=== PATIENT | female | born 1995 | race African-American/Black ===

== ENCOUNTER 2022-12-08 15:00 | Emergency (ER) | payer OTHER, SELFPAY ==
--- NOTE | ~2022-12-08 | US_ITS ---
EXAMINATION: US OB <=14 wk fetus w TV INDICATION: abodminal pain/early TECHNIQUE: Sonography of the pelvis was performed by transabdominal and transvaginal techniques. COMPARISON: None. RESULT: Uterus: Orientation: Anteverted. 12.2 x 7.8 x 8.8 cm. Myometrium: homogeneous echogenicity. Gestation: - Intrauterine gestational sac: Not seen. - Yolk sac: Present. - Embryo: Single present. - [place] rump length: 4.1 cm, corresponding gestational age 11 weeks, 0 days. -Gestational heart rate: present bpm. -Subgestational hematoma: Absent . Right ovary: 3.5 x 2.2 x 2.1 cm. Normal sonographic appearance with physiologic follicles. . 1.7 c m cyst versus dominant follicle. Left ovary: 3.4 x 2.0 x 2.2 cm. Normal sonographic appearance with physiologic follicles. . . Pelvis free fluid: None. IMPRESSION: Single, live intrauterine gestation. Estimated Gestational Age: 11 weeks, 0 days by crown rump length. SHADIA by ultrasound 06/29/2023. Reviewed, dictated and finalized at location K. IMPRESSION: Single, live intrauterine gestation. Estimated Gestational Age: 11 weeks, 0 days by crown rump length. SHADIA by ultra sound 06/29/2023.
[2022-12-08 15:12] VITALS: BP 123/72; PULSE 93; RESP 16; TEMP 37.2; O2SAT 100
--- NOTE | 2022-12-08 16:49 | PC.NURSE ---
Patient observed leaving the ER with SO and all belongings. Patient did not communicate to this RN as she left. Ambulatory with steady gait.
[2022-12-08 18:51] LABS: Basophils Absolute Auto 0.1 K/mm3 (0.0-0.1); Basophils Percent Auto 0.6 % (0.2-1.2); Eosinophils Absolute Auto 0.2 K/mm3 (0-0.3); Eosinophils Percent Auto 2.6 % (0-4.4); Hematocrit 39.7 % (37.0-47.0); Hemoglobin 13.3 g/dL (12.0-15.0); Immature Granulocyte Absolute 0.03 K/mm3 (0.00-0.031); Immature Granulocyte Percent A 0.4 % (0-0.5); Lymphocytes Absolute Auto 1.97 K/mm3 (0.9-3.2); Lymphocytes Percent Auto 24.4 % (18.3-44.2); Mean Corpuscular HGB Conc 33.5 g/dl (32-36); Mean Corpuscular Hemoglobin 31.7 pg (26-34); Mean Corpuscular Volume 94.5 fl (80-100); Mean Platelet Volume 10.2 fl (7.4-10.4); Monocytes Absolute Auto 0.5 K/mm3 (0.1-0.6); Neutrophils Absolute Auto 5.3 K/mm3 (1.3-6.7); Platelet Count Result 325 k/mm3 (150-375); Red Cell Distribution Width 12.8 % (11.5-14.5); White Blood Count 8.1 K/mm3 (4.5-10.0)
[2022-12-08 19:05] LABS: Alanine Aminotransferase 16 U/L (6-35); Albumin Level 4.4 g/dL (3.5-5.1); Alkaline Phosphatase 40 U/L (38-126); Anion Gap 7 mmol/L (8-16); Appearance Urine Cloudy (Clear); Aspartate Amino Transferase 17 U/L (14-36); Bacteria Urine 2+ /hpf; Bilirubin Urine Negative (Negative); Bilirubin,Total 0.3 mg/dL (0.2-1.3); Blood Urea Nitrogen 9 mg/dL (7-17); Blood Urine Negative (Negative); Carbon Dioxide 25 mmol/L (22-30); Chloride 104 mmol/L (98-107); Color Urine Dark Yellow (Yellow); Estimated CRCL calculation 135 ml/min; Estimated Glomerular Filt Rate > 60; Glucose 98 mg/dL (65-110); Glucose Urine UA Negative (Negative); Ketones Urine Negative (Negative); Leukocyte Esterase Ur 1+ LEU/UL (Negative); Lipase 91 U/L (23-300); Need Manual Microscopic Reviewed; Nitrate Urine Negative (Negative); Non Pathogenic Casts 0-2; Potassium 3.6 mmol/L (3.4-5.0); Protein Urine Negative (Negative); Sodium 136 mmol/L (137-145); Specific Grav Ur 1.031 (1.001-1.035); Squamous Epithelial Cell Urine Many /hpf (Few); WBC Urine 0-5 /hpf
[2022-12-08 19:07] LABS: Add Urine Microscopic? YES
--- NOTE | 2022-12-08 19:48 | PC.NURSE ---
Lab called at this time and Spoke with Baldo, HCG will be added on to current blood in lab.
[2022-12-08 19:59] VITALS: BP 119/63; PULSE 86; RESP 18; O2SAT 100
[2022-12-08 22:39] VITALS: BP 126/65; PULSE 72; RESP 14; O2SAT 100
--- NOTE | 2022-12-08 22:45 | ED.ABDPAIN ---
HPI - Abdominal Pain General Chief Complaint: Abdominal Pain <OSVALDO Serna Last Filed: 12/09/22 01:46> Stated Complaint: abdominal pain, hx of cyst on ovary <OSVALDO Serna Last Filed: 12/09/22 01:46> Time Seen by Provider: 12/08/22 22:31 <OSVALDO Serna Last Filed: 12/09/22 01:46> History of Present Illness HPI narrative: Patient is a 27-year-old female who is currently 11 weeks here for evaluation of right-sided pelvic pain for the past several weeks, worsened today. She has an ovarian cyst that was seen on outpatient imaging but she was referred to the ED for ultrasound to rule out torsion. Patient reports nausea but no vomiting, reports chronic nausea in her pregnancies. She reports urinary frequency but no dysuria or hematuria. She has had no fevers, chills, back pain, vaginal bleeding. <OSVALDO Serna Last Filed: 12/09/22 01:46> Related Data Allergies/Adverse Reactions: Allergies Allergy/AdvReac Type Severity Reaction Status Date / Time No Known Allergies Allergy Verified 12/08/22 15:00 <OSVALDO Serna Last Filed: 12/09/22 01:46> Review of Systems Review of Systems: Gen: Denies fevers or chills Eyes: Denies eye pain or visual change ENT: Denies congestion Respiratory: Denies shortness of breath or cough CV: Denies chest pain or palpitations GI: Reports nausea and vomiting. : Reports right-sided pelvic pain. Musculoskeletal: Denies back pain or muscle pain Neuro: Denies numbness, tingling, weakness or focal weakness Skin: Denies rash Except as documented, all other systems reviewed and negative <OSVALDO Serna Last Filed: 12/09/22 01:46> Exam Narrative: APPEARANCE: Well appearing, no pain in distress, well-nourished. Head: Normocephalic and atraumatic. EYES: PERRLA/EOMI, conjunctivae clear NOSE: No nasal drainage EARS: External ear normal in appearance THROAT: Oropharynx is clear. Mucous membranes are moist. NECK: Supple. No adenopathy, no masses. RESPIRATORY: Airway patent, respirations nonlabored. Clear to auscultation bilaterally, no rales, rhonchi, wheezing. CARDIOVASCULAR: Regular rate and rhythm without murmurs, rubs, or gallops. ABDOMINAL: Slight tenderness to palpation in right pelvic region. MUSCULOSKELETAL: Extremities are warm and well-perfused. Moves all extremities well. No edema. NEURO: Normal speech. No focal neurologic deficits. SKIN: Skin is warm and dry. No rashes. PSYCHIATRIC: Normal affect/mood. <Kellee Davenport PA-C - Last Filed: 12/09/22 01:46> Course FRYLINE ATTENDANT/PA Physician Supervision This is a was performed by both a physician and an APC. I performed all aspects of the MDM as documented w/ the following additions: 27-year-old female presenting ED with right lower quadrant pain. Transverse ultrasound was ordered to evaluate for ovarian torsion. No evidence of torsion although there was a cyst in the ovary. At this time the patient wanted to leave and did not want to stay for further workup. While unlikely, the patient was given return precautions for appendicitis. All questions answered. Patient in agreement w/ disposition. <Peter Francois MD - Last Filed: 12/09/22 05:29> Vital Signs Vital signs: Vital Signs Temperature 98.9 F 12/08/22 15:12 Pulse Rate 93 12/08/22 15:12 Respiratory Rate 16 12/08/22 15:12 Blood Pressure 123/72 12/08/22 15:12 Pulse Oximetry 100 12/08/22 15:12 Oxygen Delivery Room Air 12/08/22 15:12 Temperature 98.9 F 12/08/22 15:12 Pulse Rate 72 12/08/22 22:39 Respiratory Rate 14 12/08/22 22:39 Blood Pressure 126/65 12/08/22 22:39 Pulse Oximetry 100 12/08/22 22:39 Oxygen Delivery Room Air 12/08/22 15:12 <Kellee Davenport PA-C - Last Filed: 12/09/22 01:46> Vital Signs Temperature 98.9 F 12/08/22 15:12 Pulse Rate 93 12/08/22 15:12 Respiratory Rat
== END 2022-12-08 23:00 | disposition home or self-care (01) ==
LOC: ANHED 22:44
PROVIDERS: Emergency Medicine; General Practice; Emergency Provider Physician Assistant
DX: O23.41 Unspecified infection of urinary tract in pregnancy, first trimester (principal); N39.0 Urinary tract infection, site not specified; Z3A.11 11 weeks gestation of pregnancy
CPT/HCPCS: 36415; 76801; 76817; 80053; 81001; 81025; 83690; 84702; 85025; 85461; 86850; 86900; 86901; 99284

== ENCOUNTER 2023-03-01 09:29 | Observation (INO) | payer BC, OTHER, SELFPAY ==
[2023-03-01] VITALS (11 sets, daily range): BP systolic 97–126; BP diastolic 46–72; PULSE 72–94; BMI 33.0
[2023-03-01 10:38] LABS: Appearance Urine Cloudy (Clear); Bacteria Urine 1+ /hpf; Bilirubin Urine Negative (Negative); Blood Urine Negative (Negative); Color Urine Yellow (Yellow); Glucose Urine UA 2+ mg/dL (Negative); Ketones Urine Trace mg/dL (Negative); Leukocyte Esterase Ur Trace LEU/UL (Negative); Nitrate Urine Negative (Negative); Non Pathogenic Casts 0-2; Protein Urine Trace mg/dL (Negative); RBC Urine 0-2 /hpf (0-2); Specific Grav Ur 1.029 (1.001-1.035); Squamous Epithelial Cell Urine Moderate /hpf (Few); WBC Urine 0-5 /hpf; pH Urine 6.5 (5.0-9.0)
[2023-03-01] MEDS: TERBUTALINE SULFATE 1 MG/ML VIAL 0.25 MG SUB-Q (10:39)
[2023-03-01 10:51] LABS: Add Urine Microscopic? YES
--- NOTE | 2023-03-24 23:48 | PM.OBTRLD ---
OB - Triage/Final Diagnosis Visit Information Comments/Additional reasons for admission: I have assessed the risk for this patient, Disha Dailey, and determined that she would benefit from observation care. Evaluation Laboratory results: Laboratory Tests 03/01/23 10:25 Urine Color Yellow Urine Appearance Cloudy H Urine pH 6.5 Ur Specific [place] 1.029 Urine Protein Trace Urine Glucose (UA) 2+ H Urine Ketones Trace H Ur Blood (Man) Negative Urine Nitrate Negative Urine Bilirubin Negative Urine Urobilinogen 1.0 Leukocyte Esterase Rfl Trace H Urine RBC 0-2 Urine WBC 0-5 Ur Squamous Epith Cells Moderate Urine Bacteria 1+ H Urine Casts 0-2 Final Diagnosis (1) False labor: Code(s): O47.9 - False labor, unspecified Status: Acute
== END 2023-03-01 13:15 | disposition home or self-care (01) ==
PROVIDERS: Admitting Provider Obstetrics & Gynecology; PCP Advanced Practice Midwife; Visit Provider Obstetrics & Gynecology
DX: O47.00 False labor before 37 completed weeks of gestation, unspecified trimester (principal); Z3A.23 23 weeks gestation of pregnancy
CPT/HCPCS: 81001; 96372; G0378; G0379; J3105

== ENCOUNTER 2023-03-02 11:04 | Observation (INO) | payer BC, OTHER, SELFPAY ==
[2023-03-02] VITALS (7 sets, daily range): BP systolic 110–125; BP diastolic 52–81; PULSE 72–93; RESP 18; TEMP 36.5; BMI 32.9
--- NOTE | 2023-03-02 11:30 | OBADM ---
This patient, Disha Dailey, admitted to the OB room 113 for observation for cramping. Dr. Valles on unit and informed of this pt's arrival with c/o cramping- received a dose of Brethine yesterday for contractions at 23 wks and had U/S in office yesterday that she reports as a normal cervical length. Patient/family oriented to hospital policies and general routines including ID bracelet, bed and alarms, visiting hours, pain management, procedures, bathroom and other care routines, personal items, smoking policy, room service/diet, and visiting hours. Patient/Family are encouraged to report perceived risks to care and to ask questions if they do not understand what they are told or what they should do.
[2023-03-02] MEDS: NIFEdipine 30 MG TAB.ER.24 PO (12:15)
--- NOTE | 2023-03-02 12:44 | PM.IMHP ---
H&P: HPI History of Present Illness Date/Time: 03/02/23 12:44 Chief Complaint: abdominal cramping Narrative: 27-year-old multipara at 23 weeks with abdominal cramping. This is her 2nd admission for observation for this cramping. Yesterday or the day before she was carie. It appeared that she was having contractions on the monitor. She denies any loss of fluid or vaginal bleeding. She reports good movement. She reports intermittent repetitive abdominal cramping. No nausea, vomiting, fever, chills. She denies any urinary symptoms. She denies any upper respiratory symptoms. Review of Systems Review of Systems: All systems reviewed & are unremarkable except as noted in HPI and below Constitutional: Constitutional: Denies chills, Denies fatigue, Denies fever(s) and Denies weakness Eyes: Eyes: Denies blurry vision, Denies change in vision, Denies loss of peripheral vision, Denies loss of vision, Denies other visual disturbances and Denies eye pain ENT: Denies vertigo, Denies dizziness, Denies hearing loss, Denies mouth pain, Denies nasal obstruction, Denies neck mass and Denies neck pain Cardiovascular: Cardiovascular: Denies chest pain, Denies diaphoresis, Denies syncope, Denies leg edema and Denies dyspnea Respiratory: Respiratory: Denies chest congestion, Denies cough, Denies hemoptysis, Denies dyspnea and Denies wheezing Gastrointestinal: Gastrointestinal: Denies abdominal pain, Denies constipation, Denies diarrhea, Denies nausea and Denies vomiting Genitourinary: Genitourinary: Denies hematuria, Denies change in libido, Denies nocturia, Denies genital lesions, Denies flank pain and Denies urinary urgency Musculoskeletal: Musculoskeletal: Denies abnormal gait, Denies back pain, Denies myalgias, Denies arthralgias, Denies joint swelling, Denies muscle weakness and Denies neck pain Integumentary/Breasts: Skin/Breast: Denies swelling, Denies breast pain, Denies breast mass, Denies dry skin, Denies nipple discharge, Denies unusual bruising and Denies jaundice Neurologic: Denies Neuro-related abnormal movements, Denies Abnormal speech present, Denies abnormal gait, Denies behavioral changes, Denies confusion, Denies vertigo, Denies dizziness, Denies syncope, Denies loss of vision, Denies memory loss, Denies convulsions and Denies weakness Psychiatric: Psychiatric: Denies abnormal sleep pattern, Denies behavioral changes, Denies change in libido, Denies confusion, Denies depression, Denies anhedonia and Denies memory loss Endocrine: Endocrine: Reports no additional endocrine complaints, Denies change in libido and Denies fatigue Hematologic/Lymphatic: Hematologic/Lymphatic: Reports no additional hematologic/lymphatic complaints Allergic/Immunologic: Allergic/Immunologic: Reports no additional allergic/immunologic complaints and Denies wheezing Meds Home Medications and Allergies Home Medications Medication Instructions Recorded Confirmed Type vit no.95-ferrous 1 tablet PO DAILY 03/02/23 03/02/23 History fumarate 28 mg-folic acid 800 mcg tablet () Allergies Allergy/AdvReac Type Severity Reaction Status Date / Time No Known Allergies Allergy Verified 12/08/22 15:00 Vital Signs Vital Signs - 24 hr 03/02/23 11:21 03/02/23 12:01 03/02/23 12:16 Temperature Pulse Rate 82 76 80 Respiratory Rate Blood Pressure 123/81 110/57 L 125/66 Oxygen Delivery 03/02/23 11:22 03/02/23 11:30 Temperature 97.7 F Pulse Rate 76 Respiratory Rate 18 Blood Pressure 123/81 Oxygen Delivery Room Air Exam Const: General: cooperative, healthy appearing, comfortable and no acute distress Orientation/consciousness: oriented to person, oriented to place and oriented to time HENMT: Head: normal to inspection Ears: external ears normal Face/Nose/Sinus: Normal external nose present and normal facial exam Face and sinus: normal facial exam Eyes: General: appearance normal, jackson
[2023-03-02 12:53] LABS: Appearance Urine Clear (Clear); Bilirubin Urine Negative (Negative); Blood Urine Negative (Negative); Color Urine Yellow (Yellow); Glucose Urine UA Negative (Negative); Ketones Urine Negative (Negative); Leukocyte Esterase Ur Negative LEU/UL (Negative); Nitrate Urine Negative (Negative); Protein Urine Negative (Negative); Specific Grav Ur 1.017 (1.001-1.035); pH Urine 7.5 (5.0-9.0)
[2023-03-02 12:55] LABS: Add Urine Microscopic? NO
--- NOTE | 2023-03-02 14:35 | PC.NURSE ---
Dr. Valles informed contractions have resolved. Orders for discharge and meds to send out for pt received.
--- NOTE | 2023-03-24 23:58 | PM.OBTRLD ---
OB - Triage/Final Diagnosis Visit Information Comments/Additional reasons for admission: I have assessed the risk for this patient, Disha Dialey, and determined that she would benefit from observation care. Evaluation Laboratory results: Laboratory Tests 03/02/23 12:38 Urine Color Yellow Urine Appearance Clear Urine pH 7.5 Ur Specific [place] 1.017 Urine Protein Negative Urine Glucose (UA) Negative Urine Ketones Negative Ur Blood (Man) Negative Urine Nitrate Negative Urine Bilirubin Negative Urine Urobilinogen 1.0 Leukocyte Esterase Rfl Negative Final Diagnosis (1) False labor: Code(s): O47.9 - False labor, unspecified Status: Acute
== END 2023-03-02 15:46 | disposition home or self-care (01) ==
PROVIDERS: Admitting Provider Obstetrics & Gynecology; PCP Advanced Practice Midwife; Visit Provider Obstetrics & Gynecology
DX: O26.892 Other specified pregnancy related conditions, second trimester (principal); R10.9 Unspecified abdominal pain; Z3A.23 23 weeks gestation of pregnancy
CPT/HCPCS: 81003; A9270; G0378; G0379

== ENCOUNTER 2023-06-23 05:11 | Inpatient (IN) | payer BC, OTHER, SELFPAY ==
[2023-06-23] VITALS (76 sets, daily range): BP systolic 80–141; BP diastolic 39–106; PULSE 65–126; RESP 16; TEMP 36.4–37.1; O2SAT 71–100; BMI 33.5
[2023-06-23 06:10] LABS: Basophils Percent Auto 0.4 % (0.2-1.2); Eosinophils Absolute Auto 0.1 K/mm3 (0-0.3); Eosinophils Percent Auto 2.6 % (0-4.4); Hematocrit 41.6 % (37.0-47.0); Hemoglobin 13.8 g/dL (12.0-15.0); Immature Granulocyte Absolute 0.02 K/mm3 (0.00-0.031); Immature Granulocyte Percent A 0.4 % (0-0.5); Lymphocytes Absolute Auto 1.47 K/mm3 (0.9-3.2); Lymphocytes Percent Auto 27.6 % (18.3-44.2); Mean Corpuscular HGB Conc 33.2 g/dl (32-36); Mean Corpuscular Hemoglobin 31.9 pg (26-34); Mean Corpuscular Volume 96.3 fl (80-100); Mean Platelet Volume 10.9 fl (7.4-10.4); Monocytes Absolute Auto 0.3 K/mm3 (0.1-0.6); Monocytes Percent Auto 6.4 % (2.6-8.5); Neutrophils Absolute Auto 3.3 K/mm3 (1.3-6.7); Neutrophils Percent Auto 62.6 % (45.5-73.1); Platelet Count Result 226 k/mm3 (150-375); Red Blood Count 4.32 M/mm3 (4.2-5.4); Red Cell Distribution Width 13.1 % (11.5-14.5); White Blood Count 5.3 K/mm3 (4.5-10.0)
--- NOTE | 2023-06-23 06:10 | LDADM ---
This patient, Disha Dailey, was admitted to Labor/Delivery/Recovery 104 on 06/23/23 at 05:11. Plans for labor, pain management and were discussed with patient. Patient/family oriented to hospital policies and general routines including ID bracelet, bed and alarms, visiting hours, pain management, procedures, bathroom and other care routines, personal items, smoking policy, room service/diet and guest tray routines, infant security routines, and visiting hours. Patient/Family are encouraged to report perceived risks to care and to ask questions if they do not understand what they are told or what they should do. See OBIX for further documentation.
[2023-06-23] MEDS: OXYTOCIN 30 UNITS/NS 500 ML 30 UNITS/500 ML BAG IV CONT (06:47)
[2023-06-23] MEDS: LACTATED RINGERS 1,000 ML 125 ML IV CONT ×3 (06:48→21:15)
--- NOTE | 2023-06-23 08:10 | WPDOBADMIT ---
Obstetrics - Admit Note Admission Note: record reviewed. No pertinent additions to the history and/or any subsequent changes in the physical findings that are not consistent with the expected course of the were found. IOL, complicated by positive NIPT for trisomy 21, and polyhydramnios SVE /-2 AROM large amount of clear odorless fluid Additions to the history and/or subsequent changes in the physical findings follow. None.
--- NOTE | 2023-06-23 09:13 | WPDANESEPP ---
Anes - Eval Pre Procedure Procedure: labor epidural Date/Time: 06/23/23 09:13 Surgeon: елена Preop Diagnosis: pain during labor Pre Op Diagnosis: IOL Patient Data Age: 27 Gender: F Height: 1.7 m Weight: 97.3 kg Last Vital Signs Temp 36.7 C 06/23/23 06:46 Pulse 107 H 06/23/23 07:02 BP 98/55 L 06/23/23 07:02 O2 Del Method Room Air 06/23/23 06:09 Allergies Allergy/AdvReac Type Severity Reaction Status Date / Time latex Allergy Other Verified 06/23/23 06:13 Home Medications Medication Instructions Recorded Confirmed Type nifedipine 30 mg tablet,extended 30 mg PO DAILY #30 tabs 03/02/23 05/31/23 Rx release vit no.95-ferrous 1 tablet PO DAILY 03/02/23 05/31/23 History fumarate 28 mg-folic acid 800 mcg tablet () Laboratory Tests 06/23/23 06/23/23 05:23 05:24 WBC 5.3 K/mm3 (4.5-10.0) RBC 4.32 M/mm3 (4.2-5.4) Hgb 13.8 g/dL (12.0-15.0) Hct 41.6 % (37.0-47.0) MCV 96.3 fl (80-100) MCH 31.9 pg (26-34) MCHC 33.2 g/dl (32-36) RDW 13.1 % (11.5-14.5) Plt Count 226 k/mm3 (150-375) MPV 10.9 H fl (7.4-10.4) Immature Gran % (Auto) 0.4 % (0-0.5) Neut % (Auto) 62.6 % (45.5-73.1) Lymph % (Auto) 27.6 % (18.3-44.2) [place] % (Auto) 6.4 % (2.6-8.5) Eos % (Auto) 2.6 % (0-4.4) Baso % (Auto) 0.4 % (0.2-1.2) Lymph # (Auto) 1.47 K/mm3 (0.9-3.2) [place] # (Auto) 0.3 K/mm3 (0.1-0.6) Eos # (Auto) 0.1 K/mm3 (0-0.3) Baso # (Auto) 0.0 K/mm3 (0.0-0.1) Abs Immat Gran (auto) 0.02 K/mm3 (0.00-0.031) Absolute Neuts (auto) 3.3 K/mm3 (1.3-6.7) Absolute Nucleated RBC 0.0 K/mm3 (0.0-0.012) Nucleated RBC % 0.0 % (0.0-0.2) RPR Pending Blood Type O Positive Antibody Screen Negative Patient hx anesthesia problems: none Family hx anesthesia problems: none Results Review: All pre-operative results and documents have been reviewed as part of the pre-operative evaluation. COUNT INCLUDES THE [facility] Past Medical History Medical History (Updated 06/23/23 @ 09:14 by Marla Wu CRNA) IUP (intrauterine ), incidental Family History Family History (Updated 05/31/23 @ 13:35 by Krystle Mosley RN) Other Unknown family medical history Social History Social History Smoking status: Former smoker Tobacco type: cigarettes Second hand tobacco smoke exposure: No Substance use: never Lack of Transportation: No Lack of Food: Never True Current Housing: I Have Housing Concerned About Future Housing: No Difficulty Paying Gas/Electric Bills: No Difficulty Paying for Meds: No Currently Unemployed: No Education: High School Diploma/GED Difficulty w/ Childcare or Family Care: No Spiritual care concerns: No Exam Day of Procedure 06/23/23 09:13
[2023-06-23 13:18] LABS: Rapid Plasma Reagin Non-Reactive (NonReactive)
[2023-06-23] MEDS: LACTATED RINGERS 500 ML 999 ML IV CONT (19:09)
[2023-06-24] VITALS (91 sets, daily range): BP systolic 103–152; BP diastolic 54–133; PULSE 67–256; RESP 16; TEMP 36.3–37.4; O2SAT 92–100
[2023-06-24] MEDS: SODIUM CHLORIDE 0.9% IV 300 ML 600 ML I-UTERINE (01:04)
[2023-06-24] MEDS: AMPICILLIN 2 GM/NS 100 ML 2 GM/100 ML BAG IVPB (01:33)
[2023-06-24] MEDS: SODIUM CHLORIDE 0.9% IV 1,000 ML 150 ML I-UTERINE (03:25)
[2023-06-24] MEDS: FAMOTIDINE 20 MG/2 ML VIAL IV PUSH (03:42)
--- NOTE | 2023-06-24 04:00 | PM.OBPNLAB ---
Pain Control Date/time seen: 06/24/23 04:00 Comments: SVE 8.5 cm, amnioinfusion for variable decelerations, anticipate vaginal delivery
[2023-06-24] MEDS: OXYTOCIN 30 UNITS/NS 500 ML 30 UNITS/500 ML BAG 999 UNITS IV CONT (05:08)
--- NOTE | 2023-06-24 05:15 | PM.OBPRVD ---
OB - Delivery Note Procedure Delivery date: 06/24/23 Procedure: Events: Other (+NIPT, trisomy 21) Intrapartal Events: Decelerations Induction method: AROM and Per Pitocin Protocol Delivery monitor: External FHT, External Uterine and Internal Uterine Route of delivery: Episiotomy description: None Laceration Description: None Specimen: Yes Quantitative Blood Loss (ml): 50 Anesthesia type: Epidural Narrative: cord started to break and bleed after delivery, clamped quickly x 2 Baby Date of : 06/24/23 Time of : 05:07 Weeks of gestation at delivery: 39 gender: Male Weight (pounds): 6 Weight (ounces): 14 presentation: vertex position: Left Occiput Anterior Placenta delivery description: Spontaneous Cord Vessel Description: 3 Vessels, Nuchal Cord, Tight and Reduced score one minute: 8 score five minutes: 9 Narrative: mother and baby in stable condition
[2023-06-24] MEDS: OXYTOCIN 30 UNITS/NS 500 ML 30 UNITS/500 ML BAG 125 UNITS IV CONT (05:41)
[2023-06-24] MEDS: WITCH HAZEL 40 PADS 1 PAD TOPICAL (07:20)
--- NOTE | 2023-06-24 07:40 | OBPPTRN ---
Patient transferred to post room # 279 via wheelchair accompanied by fob and . Pt alert and awake and introductions made and plan of care discussed per post , pain management, breast feeding, daily care activities. PT sole recipient of such instructions and no barriers to learning identified at this time. PT received such instructions this shift via one to one discussion, mom baby care guide and demonstrations. Oriented to unit, room, information board, rooming in, admission packet and security measures. Patient verbalizes understanding.
[2023-06-24] MEDS: DOCUSATE SODIUM 100 MG CAPSULE PO ×2 (09:58→16:22)
[2023-06-24] MEDS: MULTIVIT/MIN/PREN/FOL AC/IRON TABLET 1 TAB PO (09:58)
[2023-06-24] MEDS: IBUPROFEN 600 MG TABLET PO ×3 (09:59→22:46)
[2023-06-24] MEDS: ACETAMINOPHEN 325 MG TABLET 650 MG PO ×2 (09:59→16:22)
[2023-06-24] MEDS: LANOLIN (LANSINOH) 7.5 GM CREAM 1 APPLIC TOPICAL (10:00)
--- NOTE | 2023-06-24 12:22 | PC.NURSE ---
[id number] Introductions were made, then consulted with patient to assess needs related to . Mother led the conversation with her?plans to feed?her infant, her 3 month experience with her first child and the?experience so far. Resources provided for inpatient with name written on the white board. Mother voiced understanding of information and will call if there is a request for assistance. Encouraged [id number], stimulating to wake and breastfeed. No feeding cues are visualized. Mother asked if she needed to feed the baby a bottle. Mother educated on not medically necessary at this time;however, if she chooses to bottle feed, then protect her milk with hand expression or pumping. Reported to the primary RN.
[2023-06-25] MEDS: IBUPROFEN 600 MG TABLET PO ×3 (04:40→17:59)
[2023-06-25 05:32] LABS: Hematocrit 37.4 % (37.0-47.0); Hemoglobin 12.3 g/dL (12.0-15.0)
--- NOTE | 2023-06-25 06:26 | PM.OBPNVD ---
OB - PN: Subj Subjective Date/time seen: 06/25/23 06:26 Interval history: pp day 1 doing well plan d/c home tomorrow OB - PN: Obj Data Labs 06/25/23 05:11 Labs: Laboratory Results - last 24 hr 06/25/23 05:11 Hgb 12.3 Hct 37.4 OB - PN A/P Plan day: 1 Plan: routine care Time Spent With Patient Time: Total time spent is greater than 50% in coordination of care (as documented) at patient's floor/unit and/or counseling patient: Review of Systems Review of Systems: All systems reviewed & are unremarkable except as noted in HPI and below Exam Const: General: cooperative and healthy appearing Chest: Chest palpation & inspection: normal inspection of the chest Resp: Effort & Inspection: normal respiratory effort Cardio: Rate: regular rate Rhythm: regular rhythm GI: Other: soft Skin: General skin exam: normal color Neuro: General: patient oriented x3 Extrem: Right lower extremity: normal to inspection Left lower extremity: normal to inspection
--- NOTE | 2023-06-25 06:45 | PC.NURSE ---
PT introductions made and plan of care discussed per post , pain management, breast feeding, daily care activities. PT sole recipient of such instructions and no barriers to learning identified at this time. PT received such instructions per one to one discussion, mom baby care guide and demonstrations this shift. PT verbalized understanding of such care.
[2023-06-25 07:50] VITALS: BP 109/70; PULSE 70; RESP 16; TEMP 37.2; O2SAT 98
[2023-06-25 09:10] VITALS: PULSE 70; RESP 16; O2SAT 98
[2023-06-25] MEDS: MULTIVIT/MIN/PREN/FOL AC/IRON TABLET 1 TAB PO (09:10)
[2023-06-25] MEDS: ACETAMINOPHEN 325 MG TABLET 650 MG PO ×2 (09:10→18:00)
[2023-06-25] MEDS: DOCUSATE SODIUM 100 MG CAPSULE PO ×2 (09:12→18:01)
--- NOTE | 2023-06-25 12:27 | WPDANLDPN2 ---
Anes-Prog Note L&D Date/Time: 06/25/23 12:27 Neuro status: Neuro function grossly intact. Cardiovascular status: normal Respiratory status: normal Airway patency: baseline Mental status: baseline Post-Op hydration status: normal Vital Signs: Last Vital Signs Temp 37.2 C 06/25/23 07:50 Pulse 70 06/25/23 07:50 Resp 16 06/25/23 07:50 BP 109/70 06/25/23 07:50 Pulse Ox 98 06/25/23 07:50 O2 Del Method Room Air 06/24/23 18:50 Pain score (VAS): 0 I/O: Intake & Output 06/24/23 06/25/23 06/25/23 23:59 07:59 15:59 Intake Total 240 Balance 240 Post-procedural complaints: none Patient feedback: Patient satisfied with anesthetic care.
--- NOTE | 2023-06-25 12:32 | WPDANLDPN2 ---
Anes-Prog Note L&D Date/Time: 06/25/23 12:32 Comfortable throughout: labor and delivery Neuraxial method: epidural Epidural/Spinal procedure site: tender Neuro status: Neuro function grossly intact. Cardiovascular status: normal Respiratory status: normal Airway patency: baseline Mental status: baseline Post-Op hydration status: normal Vital Signs: Last Vital Signs Temp 99 F 06/25/23 07:50 Pulse 70 06/25/23 07:50 Resp 16 06/25/23 07:50 BP 109/70 06/25/23 07:50 Pulse Ox 98 06/25/23 07:50 O2 Del Method Room Air 06/24/23 18:50 Pain score (VAS): 2 I/O: Intake & Output 06/24/23 06/25/23 06/25/23 23:59 07:59 15:59 Intake Total 240 Balance 240 Post-procedural complaints: none Patient feedback: Patient satisfied with anesthetic care.
[2023-06-25 20:00] VITALS: BP 119/70; PULSE 64; RESP 16; TEMP 36.4; O2SAT 100
[2023-06-26] MEDS: IBUPROFEN 600 MG TABLET PO ×2 (00:40→08:10)
[2023-06-26] MEDS: WITCH HAZEL 40 PADS 1 PAD TOPICAL (08:10)
[2023-06-26] MEDS: DOCUSATE SODIUM 100 MG CAPSULE PO (08:10)
[2023-06-26] MEDS: BENZOCAINE 20% AER SPR (*SP) 56 GM CAN 1 SPRAY TOPICAL (08:10)
[2023-06-26] MEDS: MULTIVIT/MIN/PREN/FOL AC/IRON TABLET 1 TAB PO (08:10)
--- NOTE | 2023-06-26 08:26 | P.PNOB_ITS ---
OB - PN: Subj Subjective Date/time seen: 06/26/23 08:26 Interval history: pp day 2 doing well, baby well plan d/c home today OB - PN: Obj Data Labs 06/25/23 05:11 OB - PN A/P Plan day: 2 Plan: routine care, discharge home and follow up 6 weeks Time Spent With Patient Time: Total time spent is greater than 50% in coordination of care (as documented) at patient's floor/unit and/or counseling patient: Review of Systems Review of Systems: All systems reviewed & are unremarkable except as noted in HPI and below Exam Const: General: comfortable, no acute distress, alert and awake Orientati on/consciousness: patient oriented x3 Resp: Effort & Inspection: normal respiratory effort
--- NOTE | 2023-06-26 08:27 | PM.OBDSVD ---
DS: Admitting Diagnosis Discharge Date 06/26/23 Admitting Diagnosis Labor DS: Discharge Diagnosis Discharge Diagnosis (1) Status post vaginal delivery: Status: Acute Assessment and Plan: stable for d/c home OB - DS: Summary Hospital Course Hospital Course: Patient presented to the hospital in labor and underwent an uncomplicated . On PPD#1 she was meeting milestones appropriately. She was stable for discharge home on PPD#2 OB Procedures : None OB Procedures Intrapartum: Spontaneous Vag Delivery OB Procedures: : None Peripartum Data Delivery Method: Natural Vaginal Laceration Description: None Episiotomy description: None Status at Discharge Cognitive/behavioral status at discharge: stable Time Spent with Patient Time attestation: Total time spent providing and/or coordinating discharge services: 15 min Exam Const: General: comfortable, no acute distress, alert and awake Resp: Effort & Inspection: normal respiratory effort DS: Data Data Completed and Pending Completed studies during hospitalization: Pending at discharge 06/24/23 06:20 Surgical [PTH] Routine Discharge Plan Discharge Attending physician on discharge: Misha Cervantes Discharging Clinician: Misha Cervantes Patient Disposition: Home, Self-Care Activity: may shower, as tolerated and pelvic rest Diet: as tolerated Patient Instructions: Antibiotic Form Stand Alone Forms: General Discharge Information Follow-up/Referrals: Thi Cm CNM [Certified Nurse Armed Security Guard] - 1 Week (BP check) Discharge Medications: Continued PNV cmb#95-ferrous fumarate-FA [] 28 mg iron- 800 mcg Tablet 1 tablet PO DAILY nifedipine 30 mg Tablet Extended Release 30 mg PO DAILY Qty: 30 0RF Date of admission: 06/23/23 05:11 Primary Care Provider: UNKNOWN,DOCTOR Admitting Provider: Joselyn Valles Attending physician on admission: Joselyn Valles Condition: Stable
[2023-06-26 13:34] VITALS: BP 110/72; PULSE 70; RESP 14; TEMP 36.8; O2SAT 100
[2023-06-26] MEDS: ACETAMINOPHEN 325 MG TABLET 650 MG PO (14:30)
[2023-06-26] MEDS: medroxyPROGESTERone ACETATE IM 150 MG/ML SYR IM (14:30)
[2023-06-28 09:36] VITALS: BP 110/57; PULSE 57; RESP 20; TEMP 36.8; O2SAT 100
== END 2023-06-26 14:45 | disposition home or self-care (01) | DRG 807 ==
LOC: ANHOB2 06-26 12:55 → ANHLDR 06-28 11:46 → ANHOB2 06-28 11:46
PROVIDERS: Advanced Practice Midwife; Admitting Provider Obstetrics & Gynecology; Visit Provider Obstetrics & Gynecology
DX: O40.3XX0 Polyhydramnios, third trimester, not applicable or unspecified (principal); Z37.0 Single live birth; Z3A.39 39 weeks gestation of pregnancy; O43.113 Circumvallate placenta, third trimester; O36.8330 Maternal care for abnormalities of the fetal heart rate or rhythm, third trimester, not applicable or unspecified; O69.1XX0 Labor and delivery complicated by cord around neck, with compression, not applicable or unspecified; O28.5 Abnormal chromosomal and genetic finding on antenatal screening of mother
CPT/HCPCS: 36415; 85014; 85018; 85025; 86592; 86850; 86900; 86901; 88307; A9270; J0290; J1050; J2590; J2795; J7030; J7120